=== PATIENT | female | born 1955 | race Caucasian/White ===

== ENCOUNTER 2020-12-10 06:25 | Day surgery (SDC) | payer MEDICAID, SELFPAY ==
[~2020-12-10] VITALS: Ht 157.5 cm; Wt 49.9 kg
[2020-12-10] MEDS ORDERED: SIMETHICONE 40 MG/0.6 ML ML ONE (07:11)
[2020-12-10] MEDS ORDERED: MEPERIDINE 100 MG INJ. 100 MG/ML VIAL ONE (07:12)
[2020-12-10] MEDS: MIDAZOLAM HCL 5 MG/5 ML VIAL ONE ×4 (08:29→08:45)
[2020-12-10 10:58] VITALS: BP_SYST 112
== END 2020-12-10 10:10 | disposition home or self-care (01) ==
LOC: SDS 06:25 → SMU 06:26 → SDS 10:10
PROVIDERS: ATTEND Internal Medicine Gastroenterology
DX: Z12.11 Encounter for screening for malignant neoplasm of colon (principal); K52.9 Noninfective gastroenteritis and colitis, unspecified; R93.5 Abnormal findings on diagnostic imaging of other abdominal regions, including retroperitoneum; K64.8 Other hemorrhoids; K29.50 Unspecified chronic gastritis without bleeding; K44.9 Diaphragmatic hernia without obstruction or gangrene; R93.3 Abnormal findings on diagnostic imaging of other parts of digestive tract; Z79.899 Other long term (current) drug therapy
CPT/HCPCS: 36415 ×2; 43239; 45378; 87081; 87426; 88305; 88312; 88313; 99152; 99153; G0378; J2175; J2250